=== PATIENT | female | born 1960 | race Caucasian/White ===

== ENCOUNTER 2020-10-13 07:15 | Outpatient (RCR) | payer OTHER, SELFPAY ==
[2020-10-04 09:08] VITALS: PULSE 66
--- NOTE | 2020-10-17 07:37 | PCCPR ---
Addendum entered by Anastasia Florentino RN 10/31/20 08:45: Maria D states she had an apt with bone doctor they changed her cast and plan for her to return in a couple of weeks and re x ray and check her progress. He wants her exercise held at this time. Discussed placing her on hold until we have a more solid return date. She was in agreement and verbalized understanding. Original Note: Dotty came in this morning with a cast to her left foot and leg. She tripped over her dog this weekend and broke a bone in her foot. She is to see an orthopaedist this week. Exercise held for now, will wait on instructions regarding restrictions from the orthopaedist.
--- NOTE | 2020-11-21 15:15 | PCCPR ---
Addendum entered by Anastasia Florentino RN 11/28/20 10:28: Unable to LM for Dotty. Original Note: Attempted to call for follow up-no answer and no voicemail set up.
--- NOTE | 2020-12-26 10:20 | PCCPR ---
Dotty did not return our call, discharged from program.
== END 2020-12-30 09:29 | disposition home or self-care (01) ==
LOC: ANHCPREHAB 07:15
PROVIDERS: Visit Provider Nurse Practitioner Family
DX: I25.2 Old myocardial infarction (principal)
CPT/HCPCS: 93798

== ENCOUNTER 2020-10-26 08:38 | Outpatient (CLI) | payer OTHER, SELFPAY ==
[2020-10-26 09:21] LABS: Anion Gap 7 mmol/L (8-16); Blood Urea Nitrogen 25 mg/dL (7-17); Calcium 9.7 mg/dL (8.4-10.2); Carbon Dioxide 26 mmol/L (22-30); Chloride 105 mmol/L (98-107); Estimated Glomerular Filt Rate > 60; Glucose 144 mg/dL (65-110); Potassium 4.1 mmol/L (3.4-5.0); Sodium 138 mmol/L (137-145)
== END 2020-10-26 08:39 | disposition home or self-care (01) ==
DX: I10 Essential (primary) hypertension (principal)
CPT/HCPCS: 36415; 80048

== ENCOUNTER 2020-11-08 10:43 | Outpatient (CLI) | payer OTHER, SELFPAY ==
--- NOTE | ~2020-11-08 | XR_ITS ---
EXAMINATION: XR foot LT min 3V EXAM DATE: 11/08/2020 11:20 INDICATION: Foot Sprain Left 1 Month Ago/Standing Images. TECHNIQUE: Left foot dorsoplantar, lateral and oblique projections obtained and reviewed. Correlation is made to left calcaneus x-ray 03/06/2017. FINDINGS: There is a 2 x 4 mm density dorsal to the talus which was not present in 2018. Potentially could be a subacute avulsion fracture. This is along the anterior aspect of the ankle for clinical co rrelation. Left metatarsal bones unremarkable. There is no subcutaneous gas. The soft tissue is unremarkable. There are no radiopaque foreign bodies. IMPRESSION: Small ossification which could be avulsion from anterior talar process. Reviewed, dictated and finalized at location B.
== END 2020-11-08 10:44 | disposition home or self-care (01) ==
PROVIDERS: Visit Provider Podiatrist Foot & Ankle Surgery
DX: S93.602A Unspecified sprain of left foot, initial encounter (principal); X58.XXXA Exposure to other specified factors, initial encounter
CPT/HCPCS: 73630

== ENCOUNTER 2020-11-24 09:14 | Outpatient (CLI) | payer OTHER, SELFPAY ==
--- NOTE | ~2020-11-24 | XR_ITS ---
XR chest 2V DATE: 11/24/2020 09:33 INDICATION: Shortness of breath TECHNIQUE: PA and lateral views COMPARISON: 05/04/2014 2 view chest FINDINGS: Normal heart size. No hilar or mediastinal enlargement. No pulmonary infiltrate or consolid ation, pleural effusion or pulmonary vascular congestion or pneumothorax. IMPRESSION: No active cardiopulmonary disease Reviewed, dictated and finalized at location A.
== END 2020-11-24 09:15 | disposition home or self-care (01) ==
PROVIDERS: Visit Provider Nurse Practitioner Family
DX: R06.02 Shortness of breath (principal)
CPT/HCPCS: 71046